=== PATIENT | male | born 1965 | race Hispanic/Latino ===

== ENCOUNTER 2018-02-21 06:00 | Day surgery (SDC) | payer OTHER ==
[~2018-02-21] VITALS: Ht 175.3 cm; Wt 77.1 kg
[~2018-02-21 06:00] MED LIST: ATOR10TA69 PO; LISI2.5T2 PO; METF500T6 PO
[2018-02-21] MEDS ORDERED: SODIUM CHLORIDE 0.9% 1000ML 1,000 ML IV ONE (06:41)
[2018-02-21 06:47] VITALS: BP 107/62
[2018-02-21] MEDS ORDERED: FLUT16H NASAL (07:05)
[2018-02-21] MEDS ORDERED: PROPOFOL 10 MG/ML 20ML VIAL IV ONE (07:29)
[2018-02-21] MEDS ORDERED: FENTANYL CITRATE PF 50 MCG/1 ML 2ML VIAL ONE (07:32)
[2018-02-21] MEDS ORDERED: GLYCOPYRROLATE 0.2 MG/ML 5 ML VIAL ONE (07:32)
[2018-02-21] MEDS ORDERED: LIDOCAINE HCL 2% 20ML ONE (07:33)
[2018-02-21] MEDS ORDERED: SIMETHICONE 40 MG/0.6 ML ML ONE (07:53)
[2018-02-21 08:07] VITALS: BP 91/60
== END 2018-02-21 08:35 ==
LOC: ENDO 06:00 → DAH 06:00 → ENDO 08:35
PROVIDERS: ATTEND Internal Medicine Gastroenterology
DX: K92.1 Melena (principal); E11.9 Type 2 diabetes mellitus without complications; Z79.84 Long term (current) use of oral hypoglycemic drugs; Z79.899 Other long term (current) drug therapy; Z98.890 Other specified postprocedural states; Z90.49 Acquired absence of other specified parts of digestive tract; Z83.3 Family history of diabetes mellitus; Z68.33 Body mass index [BMI] 33.0-33.9, adult; J18.9 Pneumonia, unspecified organism
CPT/HCPCS: 45378; 82948 ×2; A4606; J2704; J3010; J3490 ×2; J7030